=== PATIENT | female | born 1995 | race Caucasian/White ===

== ENCOUNTER 2022-09-18 21:46 | Inpatient (IN) | payer OTHER ==
[2022-09-19 01:55] VITALS: BMI 26.3
[2022-09-19] MEDS ORDERED: Promethazine HCl 12.5 MG in Sodium Chloride 0.9% 50 ML IVPB PRN (02:09)
[2022-09-19] MEDS ORDERED: Acetaminophen 325 MG TAB PO PRN (02:09)
[2022-09-19] MEDS ORDERED: fentaNYL 50 mcg/hour Patch TD PRN (02:21)
[2022-09-19] MEDS ORDERED: Ketorolac Tromethamine 30 MG/ML VIAL IVP SCH ×2 (02:45→09:30)
[2022-09-19] MEDS: Ondansetron PF 4 MG/2 ML Vial IVP PRN ×4 (02:56→21:20)
[2022-09-19] MEDS ORDERED: VANCOMYCIN 1.75 GM/500 ML BAG 1.75 GM in Premix Bag 1 BAG IVPB SCH (03:00)
[2022-09-19] MEDS: HYDROcodone/Acetaminophen 10/325 mg Tablet PO PRN ×3 (03:02→20:16)
[2022-09-19] MEDS ORDERED: Pantoprazole 40 MG VIAL IVP SCH (03:30)
[2022-09-19] MEDS ORDERED: HYDROmorphone 0.5 MG/0.5 ML SYRINGE SLOW IVP SCH ×2 (03:30→09:30)
[2022-09-19] MEDS ORDERED: Cefepime 1 GM in Sodium Chloride 0.9% 100 ML IVPB SCH (06:00)
[2022-09-19 06:18] LABS: #Lymphocytes 0.6 thou/uL (1.20-3.40); #Monocytes 0.3 thou/uL (0.11-0.59); #Neutrophils 3.6 thou/uL (1.40-6.50); %Basophils 0.2 % (0.0-1.0); %Eosinophils 0.3 % (0.0-10.0); %Lymphocytes 13.3 % (21.0-51.0); %Monocytes 6.8 % (0.0-10.0); %Neutrophils 79.4 % (42.0-75.0); Hemoglobin 12.2 g/dL (12.0-16.0); Mean Corpuscular HGB CONC 32.8 g/dL (32.0-36.0); Mean Corpuscular Hemoglobin 32.4 pg (27.0-31.0); Mean Corpuscular Volume 98.7 fl (78.0-98.0); Mean Platelet Volume 6.9 fL (7.4-10.4); Platelet Count 170 10x3/uL (130-400); RBC Distribution Width 16.1 % (11.5-14.5); Red Blood Cell (RBC) Count 3.76 mill/uL (4.20-5.40); White Blood Cell (WBC) Count 4.5 10x3/uL (4.8-10.8)
[2022-09-19 06:45] LABS: ALT (SGPT) 34 U/L (8-55); AST (SGOT) 21 U/L (5-34); Albumin 3.3 g/dL (3.5-5.0); Alkaline Phosphatase 102 U/L (40-110); Anion Gap 11 mmol/L (10-20); BUN (Urea Nitrogen) 14 mg/dL (7.0-18.7); Bilirubin, Total 0.7 mg/dL (0.2-1.2); Calc. Creatinine Clearance 153 mL/min (70-130); Calcium 8.1 mg/dL (7.8-10.44); Carbon Dioxide 18 mmol/L (22-29); Chloride 113 mmol/L (98-107); Estimated GFR 124; Globulin 2.1 g/dL (2.4-3.5); Glucose 86 mg/dL (70-105); Potassium 3.1 mmol/L (3.5-5.1); Protein, Total 5.4 g/dL (6.0-8.3); Sodium 139 mmol/L (136-145)
[2022-09-19] MEDS: Sertraline 100 MG TAB PO SCH (09:07)
[2022-09-19] MEDS: Pantoprazole 40 MG VIAL IVP SCH ×2 (09:08→20:17)
[2022-09-19] MEDS ORDERED: FENTANYL 50 MCG/ML 1 ML VIAL SLOW IVP PRN (09:20)
[2022-09-19 10:01] LABS: Legionella Urinary Ag Negative (Negative); Strep pneumo Urine Ag NEGATIVE (NEGATIVE)
[2022-09-19] MEDS ORDERED: Electrolyte Replacement Protocol FS PRN (11:30)
[2022-09-19] MEDS ORDERED: Vancomycin 1 GM in Premix Bag 1 BAG IVPB SCH (12:00)
[2022-09-19] MEDS ORDERED: Magnesium 2 GM/50 ML(in water) 2 GM in Premix Bag 1 BAG IVPB SCH (12:30)
[2022-09-19] MEDS ORDERED: Potassium Chloride 20 MEQ TAB PO SCH (12:30)
[2022-09-19] MEDS: D5 1/2 NS w/40 mEq KCL 1,000 ML IV SCH (15:20)
[2022-09-19] MEDS ORDERED: Fentanyl 100 MCG/2 ML VIAL SLOW IVP PRN (17:27)
[2022-09-19] MEDS: Cefepime 2 GM in Sodium Chloride 0.9% 100 ML IVPB SCH (18:04)
[2022-09-19] MEDS: Senokot S 8.6-50 MG TAB PO SCH (20:17)
[2022-09-20] MEDS: D5 1/2 NS w/40 mEq KCL 1,000 ML IV SCH (03:48)
[2022-09-20] MEDS: Cefepime 2 GM in Sodium Chloride 0.9% 100 ML IVPB SCH (05:09)
[2022-09-20] MEDS: HYDROcodone/Acetaminophen 10/325 mg Tablet PO PRN (05:10)
[2022-09-20 06:04] LABS: #Eosinphils 0.1 thou/uL (0.0-0.7); #Lymphocytes 0.6 thou/uL (1.20-3.40); #Monocytes 0.2 thou/uL (0.11-0.59); #Neutrophils 1.5 thou/uL (1.40-6.50); %Basophils 0.9 % (0.0-1.0); %Eosinophils 4.5 % (0.0-10.0); %Lymphocytes 22.6 % (21.0-51.0); %Monocytes 9.4 % (0.0-10.0); %Neutrophils 62.5 % (42.0-75.0); Hemoglobin 12.4 g/dL (12.0-16.0); Mean Corpuscular HGB CONC 32.6 g/dL (32.0-36.0); Mean Corpuscular Hemoglobin 32.8 pg (27.0-31.0); Mean Platelet Volume 6.9 fL (7.4-10.4); Platelet Count 164 10x3/uL (130-400); RBC Distribution Width 16.3 % (11.5-14.5); Red Blood Cell (RBC) Count 3.77 mill/uL (4.20-5.40); White Blood Cell (WBC) Count 2.4 10x3/uL (4.8-10.8)
[2022-09-20 06:24] LABS: Phosphorus 2.4 mg/dL (2.3-4.7)
[2022-09-20 06:26] LABS: ALT (SGPT) 30 U/L (8-55); AST (SGOT) 21 U/L (5-34); Albumin 3.2 g/dL (3.5-5.0); Alkaline Phosphatase 107 U/L (40-110); Anion Gap 10 mmol/L (10-20); BUN (Urea Nitrogen) 11 mg/dL (7.0-18.7); Bilirubin, Total 0.3 mg/dL (0.2-1.2); Calc. Creatinine Clearance 134 mL/min (70-130); Calcium 8.2 mg/dL (7.8-10.44); Carbon Dioxide 20 mmol/L (22-29); Chloride 114 mmol/L (98-107); Estimated GFR 119; Globulin 2.1 g/dL (2.4-3.5); Glucose 73 mg/dL (70-105); Potassium 3.8 mmol/L (3.5-5.1); Protein, Total 5.3 g/dL (6.0-8.3); Sodium 140 mmol/L (136-145)
[2022-09-20] MEDS: Ondansetron PF 4 MG/2 ML Vial IVP PRN (08:03)
[2022-09-20] MEDS: Senokot S 8.6-50 MG TAB PO SCH (08:08)
[2022-09-20] MEDS: Sertraline 100 MG TAB PO SCH (08:08)
[2022-09-20] MEDS: Pantoprazole 40 MG VIAL IVP SCH (08:09)
[2022-09-20 08:49] VITALS: BP 109/75; TEMP 97.5
[2022-09-22] MEDS ORDERED: fentaNYL 50 mcg/hour Patch TD SCH (09:00)
== END 2022-09-20 17:05 | disposition home or self-care (01) | DRG 690 ==
LOC: MSONC 21:46 → OBSVTOIN 09-19 14:06
PROVIDERS: ADMIT Internal Medicine; ATTEND Internal Medicine
DX: N39.0 Urinary tract infection, site not specified (principal); C41.9 Malignant neoplasm of bone and articular cartilage, unspecified; R11.2 Nausea with vomiting, unspecified; T45.1X5A Adverse effect of antineoplastic and immunosuppressive drugs, initial encounter; Z20.822 Contact with and (suspected) exposure to COVID-19; E87.6 Hypokalemia; E86.0 Dehydration; R10.9 Unspecified abdominal pain; Z88.5 Allergy status to narcotic agent; Z79.899 Other long term (current) drug therapy; Z98.890 Other specified postprocedural states
CPT/HCPCS: 36415; 36416; 80053; 83735; 84100; 84145; 85025; 86140; 87449; 87899; 96365; 96366; 96367; 96375; 96376; C9113; G0378; J0692; J1170; J1885; J2405; J3010; J3370; J3370-JW; J3475; J3480; J3490; U0003; U0005